=== PATIENT | male | born 1960 | race Caucasian/White ===

== ENCOUNTER 2019-09-17 12:14 | Day surgery (SDC) | payer BC ==
[2019-09-14 09:07] VITALS: BMI 36.9
[~2019-09-17 12:14] MED LIST: LACTATED RINGERS 1,000 ML IV SCH
[2019-09-17 12:28] VITALS: TEMP 97.2
[2019-09-17] MEDS ORDERED: fentaNYL (PF) 50 MCG/ML 2 ML AMP ONE (12:34)
[2019-09-17] MEDS ORDERED: MIDAZOLAM 2 MG/2 ML VIAL ONE (12:34)
[2019-09-17] MEDS ORDERED: PROPOFOL 10 MG/ML 20 ML VIAL IV ONE (12:34)
[2019-09-17] MEDS ORDERED: LACTATED RINGERS 1,000 ML IV ONE (12:39)
--- NOTE | 2019-09-17 13:24 | P.PCN ---
Date of Procedure: 09/17/19 Description of Procedure: BRIEF HISTORY: Patient is a 59-year-old pleasant male scheduled for an elective colonoscopy as a part of screening for pleasant the colon. No prior history of colonoscopy. No blood per rectum, abdominal pain, change in bowel habits or family history of colonoscopy. PROCEDURE PERFORMED: Colonoscopy with polypectomy. PREOPERATIVE DIAGNOSIS: Screening for malignant neoplasm of the colon, no prior colonoscopy reported. ESTIMATED BLOOD LOSS: Minimal. IV sedation per Anesthesia. PROCEDURE: After informed consent was obtained, the patient, was brought into the endoscopy unit. IV sedation was administered by Anesthesia under continuous monitoring. Digital rectal examination was normal. Initially the Olympus CF-190 flexible video colonoscope was then inserted in the rectum, gradually advanced into the cecum without any difficulty. Careful examination was performed as the scope was gradually being withdrawn. Ileocecal valve and the appendiceal orifice were visualized and appeared normal. Prep was excellent. Mucosa of the cecum, ascending colon, transverse colon, descending colon, sigmoid colon, and rectum appeared normal. 2 diminutive 2 mm transverse colon polyp removed with cold forcep polypectomy. One diminutive 3 mm descending colon polyp removed with cold forcep polypectomy. One 7 mm sigmoid colon polyp removed with cold snare polypectomy. One diminutive 2 mm sigmoid polyp removed with cold forcep polypectomy. Moderate sigmoid diverticulosis noted. Retroflexion was performed in the rectum and no lesions were seen. The patient tolerated the procedure well. IMPRESSION: 4 diminutive polyps 2 from transverse colon, one from descending colon and one from the sigmoid colon removed with cold forcep polypectomy. One sigmoid colon polyp removed with cold snare polypectomy. Moderate sigmoid diverticulosis. RECOMMENDATIONS: Findings of this examination were discussed with the patient and his . Okay to resume diet. Okay to resume medications. Anticipate repeat colonoscopy in 3 years for a personal history of high-risk colon polyp, pending pathology from polypectomies. Await pathology from polypectomies..
[2019-09-17 13:46] VITALS: RESP 18
[2019-09-17 13:59] VITALS: BP 120/68; PULSE 70
== END 2019-09-17 14:17 | disposition home or self-care (01) ==
LOC: ORWHC2ENDO 12:14
PROVIDERS: ATTEND Internal Medicine
DX: Z12.11 Encounter for screening for malignant neoplasm of colon (principal); D12.3 Benign neoplasm of transverse colon; D12.4 Benign neoplasm of descending colon; D12.5 Benign neoplasm of sigmoid colon; K57.30 Diverticulosis of large intestine without perforation or abscess without bleeding; E66.9 Obesity, unspecified; F17.200 Nicotine dependence, unspecified, uncomplicated; Z90.89 Acquired absence of other organs; Z79.1 Long term (current) use of non-steroidal anti-inflammatories (NSAID); Z68.37 Body mass index [BMI] 37.0-37.9, adult
CPT/HCPCS: 88305; 45380; 45385; J2250; J3010; J2704

== ENCOUNTER → 2019-09-25 | Outpatient (CLI) | payer BC ==
--- NOTE | 2019-09-26 08:12 | CTL ---
EXAMINATION TYPE: CT Low Dose Lung DATE OF EXAM ORDERED: 09/25/2019 COMPARISON: None HISTORY: . Low Dose CT Lung Screening CT DLP: 101.[address] CTDI: 2.6 mGy IV CONTRAST USED: None. SCREENING VISIT: First visit COMPARISON: None. TECHNIQUE: Low dose computed tomography scan was performed through the chest at 1 millimeter thick se ctions and reconstructed images in the coronal plane at [address] DIAGNOSTIC QUALITY: Satisfactory FINDINGS: LUNG NODULES: Not presentLeft lung: no nodules identified.Right lung: no nodules identified. Focal eventration right hemidiaphragm. Focal eventration also noted on the left posteriorly. Parenchy mal scarring within the right upper lobe medially. LUNGS: COPD: Severity: None Fibrosis: Severity:None Lymph nodes: None Other findings: None RIGHT PLEURAL SPACE: Effusion: None Calcification: None Thickening: None Pneumothorax: None LEFT PLEURAL SPACE: Effusion: None Calcification: None Thickening: None Pneumothorax: None HEART: Heart Size: Mildly enlarged Coronary calcification: Moderate Pericardial effusion: None Aneurysmal dilatation of the ascending thoracic aorta measuring 4.7 cm AP dimension. The descending t horacic aorta is of normal caliber. OTHER FINDINGS: Upper abdomen: No significant abnormality Bony thorax: Degenerative changes Supraclavicular region: No significant abnormalityOther: No significant abnormalityI IMPRESSION: 1. No evidence for concerning pulmonary nodule. 2. Aneurysmal dilatation of the ascending thoracic aorta is noted. 3. Moderate coronary artery calcifications. FOLLOW UP CT CHEST RECOMMENDATION: Follow-up screening in one year. Smoking cessation recommended. CT LUNG RAD: LUNG RAD CATEGORY 1 negative
== END | disposition home or self-care (01) ==
LOC: RADCTMAIN 16:53
PROVIDERS: ATTEND Internal Medicine Sleep Medicine
DX: I71.2 Thoracic aortic aneurysm, without rupture (principal); I25.10 Atherosclerotic heart disease of native coronary artery without angina pectoris; Z87.891 Personal history of nicotine dependence

== ENCOUNTER → 2021-10-26 | Outpatient (CLI) | payer BC ==
--- NOTE | 2021-10-27 12:54 | CT ---
EXAMINATION TYPE: CT angio chest DATE OF EXAM: 10/26/2021 COMPARISON: Low-dose lung screening CT September 25, 2019 HISTORY: Thoracic aortic aneurysm w/out rupture. No complaints by patient. CT DLP: 1260.30 mGycm. Automated Exposure Control for Dose Reduction was Utilized. CONTRAST: CTA scan of the thorax is performed without and with IV Contrast, patient injected with 100 mL of Iso sonu 370, aneurysm protocol. 3D reconstructed images are created on an independent workstation and re viewed. FINDINGS: LUNGS: Focal eventration anterior aspect right hemidiaphragm containing liver is redemonstrated. Mild underlying emphysematous change again seen. No suspicious new nodules or masses. Mild linear scarrin g anterior right mid lung redemonstrated. No new consolidation. No pleural effusion or pneumothorax s een bilaterally. MEDIASTINUM: Ascending aortic aneurysm up to 4.5 cm at level of main pulmonary artery axial image 27 not significantly changed from prior. No extension into arch or the descending aorta. No linear hyper density to suggest dissection. Some focal ectasia borderline aneurysm of the infrarenal abdominal aor ta on last axial images. Advise follow-up. There are no new greater than 1 cm hilar or mediastinal ly mph nodes. No cardiomegaly or pericardial effusion is seen. Coronary artery calcification redemonst rated which is noted marker of underlying coronary artery disease. OTHER: Mild to moderate multilevel anterior and lateral spurring of the thoracic spine redemonstrated . IMPRESSION: Accounting for technical differences stable 4.5 cm ascending aortic aneurysm. Suspect inf rarenal AAA. Advise abdominal aortic ultrasound follow-up if this is not known finding.
== END | disposition home or self-care (01) ==
LOC: RADCTMAIN 18:52
PROVIDERS: ATTEND Family Medicine
DX: I71.2 Thoracic aortic aneurysm, without rupture (principal)
CPT/HCPCS: 71275; Q9967

== ENCOUNTER → 2023-04-01 | Outpatient (CLI) | payer BC ==
--- NOTE | 2023-04-01 14:55 | CTL ---
EXAMINATION TYPE: CT Low Dose Lung DATE OF EXAM ORDERED: 04/01/2023 HISTORY: F17.210 NICOTINE DEPENDENCE, CIGARETTES, UNCOMPLIC. Lung cancer screening, 22 pack-year hist ory, current smoker. CT DLP: [address] CTDI: 2.68 mGy Automated exposure control for dose reduction was used. SCREENING VISIT: Follow-up screening visit COMPARISON: CT Low Dose Lung cancer screening 09/25/2019, CTA chest 10/26/2021. TECHNIQUE: Low dose computed tomography scan was performed through the chest at 1 mm thick sections a nd reconstructed images in multiple planes at 1 mm and [address] DIAGNOSTIC QUALITY: Satisfactory FINDINGS: LUNG NODULES: No clinically significant pulmonary nodules. LUNGS: COPD: Severity: Mild Fibrosis: Severity: None Lymph nodes: None Other findings: None RIGHT PLEURAL SPACE: Effusion: None Calcification: None Thickening: None Pneumothorax: None LEFT PLEURAL SPACE: Effusion: None Calcification: None Thickening: None Pneumothorax: None HEART: Heart Size: Normal Coronary Calcification: Large Pericardial Effusion: None OTHER FINDINGS: Upper abdomen: None Bony thorax: No acute osseous abnormalities. Mild degenerative changes of the thoracic spine. Supraclavicular region: None Other: Stable ascending thoracic aortic aneurysm measuring 4.7 x 4.7 cm, previously 4.6 x 4.6 cm. IMPRESSION: 1. No clinically significant pulmonary nodules. 2. Stable ascending thoracic aortic aneurysm measuring up to 4.7 cm. 3. Severe coronary artery disease. CT LUNG RAD AND CT CHEST RECOMMENDATION: Lung-Rad 1 Negative: Continue annual screening with LDCT in 12 months.
== END | disposition home or self-care (01) ==
LOC: RADCTMAIN 14:06
PROVIDERS: ATTEND Family Medicine
DX: Z12.2 Encounter for screening for malignant neoplasm of respiratory organs (principal); I71.21 Aneurysm of the ascending aorta, without rupture; I25.10 Atherosclerotic heart disease of native coronary artery without angina pectoris; F17.210 Nicotine dependence, cigarettes, uncomplicated
CPT/HCPCS: 71271

== ENCOUNTER → 2024-06-01 | Outpatient (CLI) | payer BC ==
--- NOTE | 2024-06-02 12:28 | CTL ---
EXAMINATION TYPE: CT Low Dose Lung DATE OF EXAM ORDERED: 06/01/2024 HISTORY: . Lung cancer screening CT DLP: 152.[address] CTDI: 4.0 mGy Automated exposure control for dose reduction was used. SCREENING VISIT: Subsequent COMPARISON: 04/01/2023 TECHNIQUE: Low dose computed tomography scan was performed through the chest at 1 mm thick sections a nd reconstructed images in the coronal plane at [address] DIAGNOSTIC QUALITY: Satisfactory FINDINGS: LUNG NODULES: Present, detailed below: 1. There may be a subpleural nodule anterior right upper lung field. Series 4 image 54. 2. There may be a mild infiltrate likely atelectasis anterior right midlung. LUNGS: COPD: Severity: None Fibrosis: Severity: None Lymph nodes: None Other findings: None RIGHT PLEURAL SPACE: Effusion: None Calcification: None Thickening: None Pneumothorax: None LEFT PLEURAL SPACE: Effusion: None Calcification: None Thickening: None Pneumothorax: None HEART: Other: Ascending thoracic aorta at the level the main pulmonary artery measures 4.7 cm. The main pul monary artery at the bifurcation measures 2.4 cm. Heart Size: Normal Coronary calcification: Mild Pericardial effusion: None OTHER FINDINGS: Upper abdomen: Normal Bony thorax: Normal Supraclavicular region: Normal IMPRESSION: 1 no suspicious abnormality to suggest primary or metastatic neoplasm. 2 ascending thorac ic aortic aneurysm measuring 4.7 cm, stable from comparison. FOLLOW UP CT CHEST RECOMMENDATION: Follow-up low-dose CT chest one year CT LUNG RAD: Lung-Rad 2 Benign Appearance or Behavior
== END | disposition home or self-care (01) ==
LOC: RADCTMAIN 07:31
PROVIDERS: ATTEND Family Medicine
DX: Z12.2 Encounter for screening for malignant neoplasm of respiratory organs (principal); F17.210 Nicotine dependence, cigarettes, uncomplicated; I71.21 Aneurysm of the ascending aorta, without rupture
CPT/HCPCS: 71271